=== PATIENT | male | born 1965 | race Caucasian/White ===

== ENCOUNTER 2019-05-16 11:09 | Emergency (ER) | payer BC, OTHER ==
[~2019-05-16] VITALS: Ht 177.8 cm; Wt 113.4 kg
[2019-05-16] MEDS ORDERED: SYNTHROID300 MCG PO (11:22)
[2019-05-16] MEDS ORDERED: VITAMIN D2000 UNIT PO (11:22)
[2019-05-16] MEDS ORDERED: ZYRTEC10 M5 PO (11:22)
[2019-05-16] MEDS ORDERED: DILANTIN100 MG PO (11:22)
[2019-05-16] MEDS ORDERED: TRILEPTAL600 MG PO (11:22)
[2019-05-16 12:00] LABS: ABSOLUTE BASOPHILS 0.1 thou/uL (0.0-0.2); ABSOLUTE EOSINOPHILS 0.3 thou/uL (0.0-0.7); ABSOLUTE LYMPHOCYTES 0.7 thou/uL (0.8-5.3); ABSOLUTE MONOCYTES 0.7 thou/uL (0.0-1.2); ABSOLUTE NEUTROPHILS 5.1 thou/uL (1.6-8.1); BASOPHILS 0.8 %; EOSINOPHILS 4.6 %; HEMOGLOBIN 15.3 gm/dL (14.0-18.0); LYMPHOCYTES 10.3 %; MCH 33.3 pg (26.0-34.0); MCHC 34.8 g/dL (28.0-37.0); MCV 95.8 fL (80.0-100.0); MONOCYTES 10.2 %; MPV 7.5 fl. (7.2-11.1); NUCLEATED RBCS 0 /100WBC; PLATELET COUNT* 197 thou/uL (150-400); POLYS 74.1 %; RBC 4.59 mil/uL (4.50-6.00); RDW-CV 13.6 % (10.5-14.5)
[2019-05-16 12:11] LABS: CALCIUM 8.7 mg/dL (8.5-10.1); CREATININE 0.8 mg/dL (0.6-1.3); POTASSIUM 4.1 mmol/L (3.5-5.1)
[2019-05-16 12:16] LABS: ALBUMIN 4.1 g/dL (3.4-5.0); TOTAL BILIRUBIN 0.4 mg/dL (<0.1-1.0); TOTAL PROTEIN 7.4 g/dL (6.4-8.2)
[2019-05-16 12:18] LABS: APTT 31.4 Seconds (25.0-31.3); PROTIME 9.9 Seconds (9.20-11.50)
[2019-05-16] MEDS ORDERED: NORCO 5-325 TA1 EAC1 PO (13:30)
[2019-05-16] MEDS ORDERED: IBUPROFEN 600600 M1 PO (13:31)
[2019-05-16 13:48] VITALS: BP 115/56
== END 2019-05-16 13:49 | disposition home or self-care (01) ==
LOC: M.ERS 11:09
PROVIDERS: Physician Assistant
DX: S13.4XXA Sprain of ligaments of cervical spine, initial encounter (principal); S09.8XXA Other specified injuries of head, initial encounter; R10.12 Left upper quadrant pain; M54.6 Pain in thoracic spine; Z90.89 Acquired absence of other organs; Z90.49 Acquired absence of other specified parts of digestive tract; Z85.850 Personal history of malignant neoplasm of thyroid; Z98.890 Other specified postprocedural states; Z88.8 Allergy status to other drugs, medicaments and biological substances; Z89.029 Acquired absence of unspecified finger(s); Z91.040 Latex allergy status; Z88.1 Allergy status to other antibiotic agents; W13.2XXA Fall from, out of or through roof, initial encounter; Y93.89 Activity, other specified; Y92.89 Other specified places as the place of occurrence of the external cause; Y99.8 Other external cause status